=== PATIENT | female | born 1935 | race Caucasian/White ===

== ENCOUNTER 2016-10-19 13:44 | Emergency (ER) | payer MEDICAID, OTHER ==
--- NOTE | 2016-10-19 13:50 | EDPHY ---
HPI/HX/ROS/PE/MDM Narrative: CHIEF COMPLAINT: Fall, left hip pain HPI: The patient is an 81 y/o female arriving via EMS complaining of left hip pain secondary to a witnessed fall at [facility] this afternoon. Per EMS, staff witnessed the patient fall directly onto her left hip and deny loss of consciousness, head strike, or visible injury. The patient has dementia and is at baseline per facility staff. She complained of [id number] back and left hip pain to EMS, but denies any complaints to me. She is unable to contribute further to history secondary to dementia. She is on aspirin, but no anticoagulants per transfer paperwork. REVIEW OF SYSTEMS: Unable to obtain due to patient's dementia. PMH: Dementia, CAD, angina, GERD, hypertension, breast cancer, thyroid disease DNR status SOCIAL HISTORY: Lives at [facility] Prior medical records reviewed including ED visit 03/10/16 PHYSICAL EXAM: General:Patient is alert, in no acute distress. ENT:Eyes are normal to inspection. ENT inspection normal. Neck: Normal inspection. C-collar in place. Respiratory:No respiratory distress. Breath sounds normal bilaterally. Cardiovascular: Regular rate and rhythm. Strong peripheral pulses. Normal cap refill. Abdomen:The abdomen is nontender to palpation. There are no peritoneal signs. There are normal bowel sounds. Back: Normal to inspection. No tenderness to palpation. Skin: Normal color. No rash. Warm and dry. Extremities: Normal appearance. Full range of motion. Neuro: Oriented x1. Normal motor function. Normal sensory function. ED Course: IV established by EMS. Labs drawn including CBC, CHEM. Plan for head and neck CTs. Study: CT of the Head Indication: Fall Results: CT scan of the head was obtained. The results of the study are negative for acute process. The study was read by the radiologist, Dr. Friend. I viewed the images myself on the PACS system. Study: CT of the Neck Indication: Fall Results: CT scan of the neck was obtained. The results of the study are negative for acute process. The study was read by the radiologist, Dr. Frined. I viewed the images myself on the PACS system. 3pm- Patient road testing well without any apparent pain. No evidence for hip fracture. We will discharge the patient home. - Data Points Laboratory Results: Laboratory Results 10/19/16 13:30 10/19/16 13:30 10/19/16 13:30 WBC 6.91 10^3/uL (3.80-9.50) RBC 4.12 L 10^6/uL (4.18-5.33) Hgb 13.8 g/dL (12.6-16.3) Hct 39.1 % (38.0-47.0) MCV 94.9 fL (81.5-99.8) MCH 33.5 pg (27.9-34.1) MCHC 35.3 g/dL (32.4-36.7) RDW 11.9 % (11.5-15.2) Plt Count 202 10^3/uL (150-400) MPV 10.7 fL (8.7-11.7) Neut % (Auto) 70.6 % (39.3-74.2) Lymph % (Auto) 18.2 % (15.0-45.0) [place] % (Auto) 7.5 % (4.5-13.0) Eos % (Auto) 3.0 % (0.6-7.6) Baso % (Auto) 0.4 % (0.3-1.7) Nucleat RBC Rel Count 0.0 % (0.0-0.2) Absolute Neuts (auto) 4.87 10^3/uL (1.70-6.50) Absolute Lymphs (auto) 1.26 10^3/uL (1.00-3.00) Absolute Monos (auto) 0.52 10^3/uL (0.30-0.80) Absolute Eos (auto) 0.21 10^3/uL (0.03-0.40) Absolute Basos (auto) 0.03 10^3/uL (0.02-0.10) Absolute Nucleated RBC 0.00 10^3/uL (0-0.01) Immature Gran % 0.3 % (0.0-1.1) Immature Gran # 0.02 10^3/uL (0.00-0.10) Sodium 141 mEq/L (134-144) Potassium 3.1 L mEq/L (3.5-5.2) Chloride 99 mEq/L (97-110) Carbon Dioxide 26 mEq/l (22-31) Anion Gap 16 mEq/L (8-16) BUN 18 mg/dL (7-23) Creatinine 0.9 mg/dL (0.6-1.0) Estimated GFR 60 Glucose 88 mg/dL (70-100) Calcium 9.8 mg/dL (8.5-10.4) General Initial Vital Signs: Initial Vital Signs Temperature (C) 36.6 C 10/19/16 13:44 Heart Rate 75 10/19/16 13:44 Respiratory Rate 18 10/19/16 13:44 Blood Pressure 140/74 H 10/19/16 13:44 O2 Sat (%) 97 10/19/16 13:44 O2 Delivery Mode Room Air Allergies/Adverse Reactions: No Known Allergies Allergy (Verified 09/26/14 13:25) Home Medications: Medication Instructions Recorded Aspirin EC [Aspirin EC 81 mg (*)] 81 mg PO DAILY 10/01/14 Cholecalciferol Vit D3 [Vitamin D3 50,000 unit PO WE 10/01/14 (*)] Escitalopram Oxalate [Lexapro] 20 mg PO DAILY 10/01/14 Amlodipine Besylate 10/19/16 Dulcolax 10/19/16 Lorazepam 10/19/16 Senna 10/19/16 Departure - Departure Disposition: Home, Routine, Self-Care Clinical Impression: Fall, Dementia Condition: Fair Instructions: Fall Prevention for Older Adults (ED) Additional Instructions: Follow up with your primary care provider for symptoms not improved over the next 2-3 days. Referrals: NONE *PRIMARY CARE P,. [Primary Care Provider] - As per Instructions Racquel Hernadez MD [Medical Doctor] - As per Instructions Report Scribed for: Talon Yao Report Scribed by: Yarely Jackson Date of Report: 10/19/16 Time of Report: 13:52 Physician Review and Approval Statement: Portions of this note were transcribed by an ED scribe. I personally performed the history, physical exam, and medical decision making; and confirm the accuracy of the information in the transcribed note.
[2016-10-19 13:59] LABS: % IMMATURE GRANULYOCYTES 0.3 % (0.0-1.1); ABSOLUTE IMMATURE GRANULOCYTES 0.02 10^3/uL (0.00-0.10); ADD DIFF? NO; ADD MORPH? NO; ADD SCAN? NO; ATYPICAL LYMPHOCYTE FLAG 10 (0-99); FRAGMENT RBC FLAG 0 (0-99); HEMATOCRIT 39.1 % (38.0-47.0); HEMOGLOBIN 13.8 g/dL (12.6-16.3); LEFT SHIFT FLG 0 (0-99); LIPEMIA HEMOLYSIS FLAG 90 (0-99); MEAN CELL HEMOGLOBIN 33.5 pg (27.9-34.1); MEAN CELL HEMOGLOBIN CONCENTR. 35.3 g/dL (32.4-36.7); MEAN CELL VOLUME 94.9 fL (81.5-99.8); MEAN PLATELET VOLUME 10.7 fL (8.7-11.7); PLATELET CLUMPS FLAG 0 (0-99); PLATELET COUNT 202 10^3/uL (150-400); RED BLOOD CELL COUNT 4.12 10^6/uL (4.18-5.33); RED CELL DISTRIBUTION WIDTH 11.9 % (11.5-15.2)
[2016-10-19 14:19] LABS: ANION GAP 16 mEq/L (8-16); CALCIUM 9.8 mg/dL (8.5-10.4); CARBON DIOXIDE 26 mEq/l (22-31); CHLORIDE 99 mEq/L (97-110); CREATININE 0.9 mg/dL (0.6-1.0); GLOMERULAR FILTRATION RATE 60; GLUCOSE 88 mg/dL (70-100); POTASSIUM 3.1 mEq/L (3.5-5.2); SODIUM 141 mEq/L (134-144)
--- NOTE | 2016-10-19 14:49 | CT ---
Noncontrast Head CT Indication: Trauma. Injury.. Technique: Standard noncontrast axial CT images of the head were performed. Dose reduction technFortisphere ues were utilized. COMPARISON STUDY: October 01, 2014. Findings: Marked enlargement of lateral ventricles suggests the possibility of normal pressure hydr ocephalus. There is diffuse white matter hypodensity potentially related to transependymal edema or m icrovascular ischemic gliosis. Underlying cerebral and cerebellar atrophy is present. No evidence of acute cortical ischemia or intracranial hemorrhage. No mass or mass effect. Reconstructed bone windo ws are negative for fracture. Impression: Stable noncontrast CT of the head. Ventriculomegaly and white matter disease, possible normal pressure hydrocephalus. Results called to Dr. Talon Yao at 2:45 PM at the time of the interpretation.
--- NOTE | 2016-10-19 14:51 | CT ---
CT of the cervical spine, without contrast. HISTORY: Trauma. Pain. TECHNIQUE: Axial CT images of the cervical spine are obtained and are reformatted in sagittal and cor onal planes. Dose reduction techniques are utilized. FINDINGS: Marked degenerative changes at the C1-C2 articulation. There is also marked intervertebral disk height loss at C5-C6 with mild retrolisthesis of C5. No fracture or compromise of the cervical s harsha canal identified. Facet joints align normally, with degenerative changes in the upper and mid c ervical spine bilaterally. IMPRESSION: Degenerative changes. Negative for acute injury. Results called to Dr. Yao at 2:45 PM
[2016-10-19 15:20] VITALS: BP 127/78
[2016-10-19 15:52] VITALS: PULSE 76; RESP 18; TEMP 97.2; O2SAT 98
== END 2016-10-19 15:49 | disposition home or self-care (01) ==
LOC: EDUNIT#
DX: F03.90 Unspecified dementia, unspecified severity, without behavioral disturbance, psychotic disturbance, mood disturbance, and anxiety (principal); I25.10 Atherosclerotic heart disease of native coronary artery without angina pectoris; I10 Essential (primary) hypertension; Z85.3 Personal history of malignant neoplasm of breast; Z79.82 Long term (current) use of aspirin; W18.39XA Other fall on same level, initial encounter

== ENCOUNTER 2016-11-13 13:23 | Emergency (ER) | payer OTHER, MEDICAID ==
[2016-11-13] MEDS ORDERED: LETS SOLN TOPICAL 1 EA SYR TP ONE (13:34)
[2016-11-13] MEDS ORDERED: NS 1,000 ML IV ONE (13:39)
--- NOTE | 2016-11-13 13:45 | EDPHY ---
H & P Stated Complaint: fall per EMT, [facility] Source: Patient Exam Limitations: No limitations - Medical/Surgical History Hx Asthma: No Hx Chronic Respiratory Disease: No Hx Diabetes: No Hx Cardiac Disease: Yes Hx Renal Disease: No Hx Cirrhosis: No Hx Alcoholism: No Hx HIV/AIDS: No Hx Splenectomy or Spleen Trauma: No Other PMH: dementia, alzheimers, HTN, angina, CAD, depression, hypothyroid, dysphagia, weakness, vitamin-D deficiency, GERD, depression. breast CA, left mastectomy - Family History Significant Family History: No pertinent family hx - Social History Smoking Status: Current every day smoker Alcohol Use: None Drug Use: None Time Seen by Provider: 11/13/16 13:23 HPI/ROS: HPI: Pleasantly demented 81-year-old female presents to emergency department brought in by EMS after a witnessed fall at [facility] 40 minutes prior to arrival when she when outside for a smoke, went to sit in a chair, and slumped off of the chair, falling to the ground. Fall was witnessed by [facility] staff. There was no loss of consciousness. Patient complains of headache, neck pain. Denies shortness of breath, chest pain, abdominal pain, nausea, vomiting, weakness or numbness of her extremities. Her baseline is dementia. He ambulates independently but somewhat unstable at baseline. Takes aspirin daily, no other anti-platelet medications. Lives at [facility]. ROS:10 point review of systems is negative other than as stated in HPI (Gardenia Rosa) - Social History Additional Social History: Pleasantly demented, DNR, lives at [facility] (Gardenia Rosa) - Physical Exam Exam: VS: Reviewed by me, see NN. General: Well developed, well nourished, lethargic, awakens to voice. Head: Normalocephalic. Atraumatic. Face: Atraumatic. EENT: PERRLA. EOMI. No nystagmus. TMs intact bilaterally with normal landmarks. No rhinnorhea, nasal passages clear. Oropharynx without trauma or malocclusion. Neck: Supple, nontender. Midline tenderness present. Placed in cervical collar. Chest: Nontender, no subcutaneous air palpable. Respiratory: Breathing unlabored. Breath sounds equal bilaterally and clear to auscultation. No adventitious sounds. CV: Chest nontender, atraumatic. Heart rate regular. No murmur, distal pulses 2+ bilaterally. Brisk cap refill all extremities. GI: Abdomen soft, nontender. Nondistended. Bowel sounds normoactive and positive x4 quadrants. : No CVA tenderness. Neuro: Alert. Oriented x 1. Speech clear and slow. Nonfocal cranial nerves throughout. Sensation intact all extremities. Normal motor. Facial symmetry present. Negative pronator drift. Strength equal in 4+ all extremities. Skin: Skin warm, dry, intact. Atraumatic. Extremities: Bilaterally, shoulders atraumatic, normal range of motion. Elbows and arms bilaterally with normal range of motion, atraumatic. Wrist and hands with normal range of motion however abrasions bilaterally to hands. Opposition intact. No snuffbox tenderness. Bilaterally hips and legs are atraumatic and with normal range of motion. Bilaterally the knees have abrasions and pain with palpation anteriorly. Feet ankles bilaterally atraumatic with normal range of motion. (Gardenia Rosa) Constitutional: Initial Vital Signs Temperature (C) 36.8 C 11/13/16 13:42 Heart Rate 77 11/13/16 13:42 Respiratory Rate 18 11/13/16 13:42 Blood Pressure 130/60 H 11/13/16 13:42 O2 Sat (%) 94 11/13/16 13:42 O2 Delivery Mode Room Air Allergies/Adverse Reactions: No Known Allergies Allergy (Verified 09/26/14 13:25) Home Medications: Medication Instructions Recorded Aspirin EC [Aspirin EC 81 mg (*)] 81 mg PO DAILY 10/01/14 Cholecalciferol Vit D3 [Vitamin D3 50,000 unit PO WE 10/01/14 (*)] Escitalopram Oxalate [Lexapro] 20 mg PO DAILY 10/01/14 Amlodipine Besylate 10/19/16 Dulcolax 10/19/16 Lorazepam 10/19/16 Senna 10/19/16 Medical Decision Making - Diagnostics Imaging: Hand, knee, wrist x-rays bilaterally without evidence of acute fracture or dislocation. Reviewed by myself. CT head: Indication: Fall, trauma: No evidence of intracranial bleed or skull fracture, final report pending at time of this dictation. CT neck: Indication: Fall, trauma, midline tenderness: No evidence of cervical spine fracture, final report pending at time of this dictation. (Gardenia Rosa) ED Course/Re-evaluation: 81-year-old female who is pleasantly demented was witnessed falling out of a chair when she sat lop-sided on a chair and slumped over, landing on her hands, knees, with unknown head strike. No loss of consciousness. At time of presentation reports headache, midline neck tenderness. CT head and neck ordered. Will rule out UTI and pneumonia. Labs pending. EKG pending. IV fluids hung. Patient placed in a C-spine collar. 1410: White count 7740. H&H 13.1, 38.1. Glucose 129, otherwise basic metabolic panel unremarkable. 1435: Urinalysis negative for evidence of UTI. Chest x-ray negative. Bilateral hand, wrist, and knee x-rays negative for acute fracture or dislocation. Wound care performed by monogram technician per protocol. EKG shows a sinus rhythm, rate 74 , normal intervals, no axis deviation, no evidence of acute ischemia or dysrhythmia. Vitals are stable. Patient received 1 L normal saline. She will be transferred back to [facility]. (Gardenia Rosa) Differential Diagnosis: Differential diagnosis includes but is not limited to intracranial bleed, skull fracture, cervical spine fracture, wrist/hand/knee fractures, pneumonia, UTI, hypoglycemia, metabolic derangement (Gardenia Rosa) Other Provider: PHYSICIAN DOCUMENTATION: The patient was evaluated and managed by the nurse practitioner and myself. I have reviewed the chart and agree with the findings and plan of care as documented. In addition, I examined the patient myself at 13 40. History confirmed as mechanical fall off a patio chair. Physical findings as follows: Follows commands, a little bit sleepy but opens eyes spontaneously and to voice , cervical spine nontender to palpation. No snuffbox tenderness on either wrist. I am the secondary supervising physician. (Bull Gonzalez) - Data Points Laboratory Results: Laboratory Results 11/13/16 13:39 11/13/16 13:39 11/13/16 11/13/16 11/13/16 14:20 13:39 13:39 WBC 7.74 10^3/uL 10^3/uL (3.80-9.50) RBC 4.01 10^6/uL L 10^6/uL (4.18-5.33) Hgb 13.1 g/dL g/dL (12.6-16.3) Hct 38.1 % % (38.0-47.0) MCV 95.0 fL fL (81.5-99.8) MCH 32.7 pg pg (27.9-34.1) MCHC 34.4 g/dL g/dL (32.4-36.7) RDW 12.3 % % (11.5-15.2) Plt Count 198 10^3/uL 10^3/uL (150-400) MPV 11.0 fL fL (8.7-11.7) Neut % (Auto) 67.0 % % (39.3-74.2) Lymph % (Auto) 17.2 % % (15.0-45.0) [place] % (Auto) 11.0 % % (4.5-13.0) Eos % (Auto) 3.9 % % (0.6-7.6) Baso % (Auto) 0.6 % % (0.3-1.7) Nucleat RBC Rel Count 0.0 % % (0.0-0.2) Absolute Neuts (auto) 5.19 10^3/uL 10^3/uL (1.70-6.50) Absolute Lymphs (auto) 1.33 10^3/uL 10^3/uL (1.00-3.00) Absolute Monos (auto) 0.85 10^3/uL H 10^3/uL (0.30-0.80) Absolute Eos (auto) 0.30 10^3/uL 10^3/uL (0.03-0.40) Absolute Basos (auto) 0.05 10^3/uL 10^3/uL (0.02-0.10) Absolute Nucleated RBC 0.00 10^3/uL 10^3/uL (0-0.01) Immature Gran % 0.3 % % (0.0-1.1) Immature Gran # 0.02 10^3/uL 10^3/uL (0.00-0.10) Sodium 141 mEq/L mEq/L (134-144) Potassium 3.6 mEq/L mEq/L (3.5-5.2) Chloride 103 mEq/L mEq/L (97-110) Carbon Dioxide 25 mEq/l mEq/l (22-31) Anion Gap 13 mEq/L mEq/L (8-16) BUN 16 mg/dL mg/dL (7-23) Creatinine 0.7 mg/dL mg/dL (0.6-1.0) Estimated GFR > 60 Glucose 129 mg/dL H mg/dL (70-100) Calcium 10.2 mg/dL mg/dL (8.5-10.4) Urine Color YELLOW Urine Appearance HAZY Urine pH 5.0 (5.0-7.5) Ur Specific [place] 1.019 (1.002-1.030) Urine Protein NEGATIVE (NEGATIVE) Urine Ketones NEGATIVE (NEGATIVE) Urine Blood NEGATIVE (NEGATIVE) Urine Nitrate NEGATIVE (NEGATIVE) Urine Bilirubin NEGATIVE (NEGATIVE) Urine Urobilinogen NEGATIVE EU EU (0.2-1.0) Ur Leukocyte Esterase NEGATIVE (NEGATIVE) Urine Glucose NEGATIVE (NEGATIVE) Medications Given: Discontinued Medications Sodium Chloride (Ns) 1,000 mls @ 0 mls/hr IV ONCE ONE PRN Reason: Wide Open Stop: 11/13/16 13:40 Last Admin: 11/13/16 14:38 Dose: 1,000 mls Tetracaine/Epinephrine/Lidocaine (Lets Soln Topical) 2 ea TP EDNOW ONE Stop: 11/13/16 13:35 Last Admin: 11/13/16 13:45 Dose: 2 ea Departure - Departure Disposition: Home, Routine, Self-Care Clinical Impression: mechanical fall, Abrasion, Cervical strain, acute Minor head injury Qualifiers: Encounter type: initial encounter Qualified Code(s): S00.90XA - Unspecified superficial injury of unspecified part of head, initial encounter Dementia Qualifiers: Dementia type: unspecified type Dementia behavioral disturbance: without behavioral disturbance Qualified Code(s): F03.90 - Unspecified dementia without behavioral disturbance Condition: Good Instructions: Cervical Strain (ED), Head Injury (ED), Abrasion (ED), Fall Prevention (ED) Additional Instructions: Plan: Follow up with primary care tomorrow for recheck without fail--When you call to schedule appointment, please let the office know you are an "ER follow up" appointment" 1000 mg Tylenol as needed every 8 hours for discomfort ice every 2 hours for 20 minutes to hands and knees for the the next 2-3 days as needed Referrals: Patient,NotPresent [Unknown] - As per Instructions YOSHI VILLAFUERTE [Medical Doctor] - As per Instructions
[2016-11-13 13:52] LABS: % IMMATURE GRANULYOCYTES 0.3 % (0.0-1.1); ABSOLUTE IMMATURE GRANULOCYTES 0.02 10^3/uL (0.00-0.10); ADD DIFF? NO; ADD MORPH? NO; ADD SCAN? NO; ATYPICAL LYMPHOCYTE FLAG 10 (0-99); FRAGMENT RBC FLAG 0 (0-99); HEMATOCRIT 38.1 % (38.0-47.0); HEMOGLOBIN 13.1 g/dL (12.6-16.3); LEFT SHIFT FLG 0 (0-99); LIPEMIA HEMOLYSIS FLAG 90 (0-99); MEAN CELL HEMOGLOBIN 32.7 pg (27.9-34.1); MEAN CELL HEMOGLOBIN CONCENTR. 34.4 g/dL (32.4-36.7); PLATELET CLUMPS FLAG 10 (0-99); PLATELET COUNT 198 10^3/uL (150-400); RED BLOOD CELL COUNT 4.01 10^6/uL (4.18-5.33); RED CELL DISTRIBUTION WIDTH 12.3 % (11.5-15.2)
[2016-11-13 14:07] LABS: ANION GAP 13 mEq/L (8-16); CALCIUM 10.2 mg/dL (8.5-10.4); CARBON DIOXIDE 25 mEq/l (22-31); CHLORIDE 103 mEq/L (97-110); CREATININE 0.7 mg/dL (0.6-1.0); GLOMERULAR FILTRATION RATE > 60; GLUCOSE 129 mg/dL (70-100); POTASSIUM 3.6 mEq/L (3.5-5.2); SODIUM 141 mEq/L (134-144)
[2016-11-13 14:33] LABS: COLOR YELLOW; LEUKOCYTE ESTERASE,URINE NEGATIVE (NEGATIVE); NITRITE,URINE NEGATIVE (NEGATIVE)
--- NOTE | 2016-11-13 15:14 | CPEKG ---
Heart Rate: 74 RR Interval: 811 P-R Interval: 164 QRSD Interval: 72 QT Interval: 436 QTC Interval: 484 P Hobson: 66 QRS Hobson: 72 T Wave Hobson: 57 EKG Severity - NORMAL ECG - EKG Impression: SINUS RHYTHM Electronically Signed By: Bull Gonzalez 13-Nov-2016 15:13:35
[2016-11-13 17:23] VITALS: BP 133/82; PULSE 71; RESP 12; TEMP 97.3; O2SAT 96
== END 2016-11-13 17:23 | disposition home or self-care (01) ==
LOC: EDUNIT#
DX: S09.90XA Unspecified injury of head, initial encounter (principal); S16.1XXA Strain of muscle, fascia and tendon at neck level, initial encounter; F03.90 Unspecified dementia, unspecified severity, without behavioral disturbance, psychotic disturbance, mood disturbance, and anxiety; S80.212A Abrasion, left knee, initial encounter; S80.211A Abrasion, right knee, initial encounter; I10 Essential (primary) hypertension; I25.10 Atherosclerotic heart disease of native coronary artery without angina pectoris; F17.200 Nicotine dependence, unspecified, uncomplicated; Z79.82 Long term (current) use of aspirin; Z85.3 Personal history of malignant neoplasm of breast; W07.XXXA Fall from chair, initial encounter